=== PATIENT | male | born 1945 | race Caucasian/White ===

== ENCOUNTER 2016-11-22 10:03 | Inpatient (IN) | payer OTHER, MEDICARE ==
[~2016-11-22] VITALS: Ht 177.8 cm; Wt 138.5 kg
[2016-12-02] MEDS ORDERED: FENO160T PO (09:34)
[2016-12-02] MEDS ORDERED: LEVO200T4 PO (09:34)
[2016-12-02] MEDS ORDERED: ATOR10TA15 PO (09:34)
[2016-12-02] MEDS ORDERED: HYDR-3580 PO (09:34)
[2016-12-02] MEDS ORDERED: ENAL10TA PO (09:34)
--- NOTE | 2016-12-02 13:59 | MH ---
cc: CARINE DALTON M.D. DATE OF ADMISSION: 12/03/2016 ADMISSION DIAGNOSIS Malfunctioning right hip replacement arthroplasty. HISTORY OF PRESENT ILLNESS This patient is a 71-year-old male who in 2003 came to an anterolateral exposure of the right hip for hip resurfacing arthroplasty performed elsewhere. The patient did well until the last year when he was having progressive pain in the region of his right hip. Investigative studies shows evidence of elevated cobalt and chromium levels. This was concerning for malfunctioning right [id number] surface replacement arthroplasty. He presents now for revision arthroplasty. PAST MEDICAL HISTORY, SOCIAL HISTORY, FAMILY HISTORY, REVIEW OF SYSTEMS: See attached notes. PHYSICAL EXAMINATION GENERAL: A 71-year-old male in moderate distress with his right hip. HEENT: Normocephalic, atraumatic. Pupils equal, round, reactive to light and accommodation. Extraocular movements intact. NECK: Supple. CHEST: Clear. HEART: Regular rate and rhythm. ABDOMEN: Soft, nontender. Normoactive bowel sounds. MUSCULOSKELETAL: The patient has a right hip well-healed lateral incision, pain with range of motion especially internal and external rotation. Mild weakness is seen. Neurologic and vascular examination is within normal limits. IMPRESSION Malfunctioning right [id number] resurfacing hip arthroplasty. PLAN Revision right total hip replacement arthroplasty CONSENT There are risks with surgery including infection, bleeding, loss of motion, continued pain, need for further surgery, neurologic and vascular injury. The patient understands these issues and wishes to press on with surgery as outlined above. MD SALINA Fontaine/VASILIY /1:21 PM /1:50 PM
[2016-12-03] MEDS ORDERED: VANCOMYCIN 1000 MG/NS 250 ML (for <70 kg) IV SCH ×2 (10:15)
[2016-12-03] MEDS ORDERED: POVIDONE IODINE 7.5% SCRUB 118 ML BOTTLE TOPICAL SCH (10:15)
[2016-12-03] MEDS ORDERED: TRANEXAMIC ACID INJ 1,200 MG in SODIUM CHLORIDE 0.9% INJ 100 ML IV SCH (10:15)
[2016-12-03] MEDS ORDERED: LACTATED RINGER'S 1000 ML IV PRN (10:15)
[2016-12-03] MEDS ORDERED: CHLORHEXIDINE GLUCONATE 2 % 1 PACK (2 CLOTHS) TOPICAL PRN (10:15)
[2016-12-03] MEDS ORDERED: ceFAZolin 2 GM PREMIX 50 ML IV SCH (10:15)
[2016-12-03] MEDS ORDERED: EXPAREL PERI-ARTICULAR INJECTION (TOTAL VOL. 60 ML) P-ARTICULR SCH ×2 (10:15)
[2016-12-03] MEDS ORDERED: SODIUM CHLORID 0.9% 500 ML IV PRN (10:15)
[2016-12-03] MEDS ORDERED: METOPROLOL TARTRATE 25 MG TAB PO PRN (10:15)
[2016-12-03] MEDS ORDERED: INSULIN HUMAN REGULAR 1,000 UNITS/10 ML VIAL SQ PRN (10:15)
[2016-12-03] MEDS ORDERED: POVIDONE IODINE 5% (ANTISEPSIS KIT) 4 APPLICATIONS EACH NARE PRN (10:15)
[2016-12-03 10:25] VITALS: BP 115/72; PULSE 86; RESP 18; TEMP 97.8; O2SAT 96
[2016-12-03] MEDS ORDERED: FAMOTIDINE 20 MG/2 ML VIAL ONE (13:20)
[2016-12-03] MEDS ORDERED: fentaNYL CITRATE 250 MCG/5 ML AMP ONE ×2 (13:20→18:09)
[2016-12-03] MEDS ORDERED: MIDAZOLAM HCL 2 MG/2 ML VIAL ONE (13:20)
[2016-12-03] MEDS ORDERED: ACETAMINOPHEN 1000 MG/100 ML VIAL IV ONE (13:20)
[2016-12-03] MEDS ORDERED: DEXAMETHASONE SOD PHOS 4 MG/ML VIAL ONE (13:20)
[2016-12-03] MEDS ORDERED: HEPARIN SODIUM - SQ 10,000 UNITS/ML VIAL ONE (13:35)
[2016-12-03] MEDS ORDERED: ceFAZolin INJ 1,000 MG VIAL ONE (13:35)
[2016-12-03] MEDS ORDERED: GENTAMICIN SULFATE 80 MG/2 ML VIAL ONE (13:35)
[2016-12-03] MEDS ORDERED: THROMBIN (TOPICAL) 5,000 UNIT VIAL ONE (13:38)
[2016-12-03] MEDS ORDERED: GELATIN 12 MM/7 MM FOAM ONE (13:38)
[2016-12-03] MEDS ORDERED: HYDR-3366 PO (17:14)
[2016-12-03] MEDS ORDERED: XARE10TA PO (17:14)
[2016-12-03] MEDS ORDERED: TEMAZEPAM 15 MG CAP PO PRN (17:15)
[2016-12-03] MEDS ORDERED: ONDANSETRON HCL 4 MG/2 ML VIAL IVP PRN (17:15)
[2016-12-03] MEDS ORDERED: ALUMINUM/MAGNESIUM/SIMETH 30 ML CUP PO PRN (17:15)
[2016-12-03] MEDS ORDERED: SODIUM CHLORIDE 0.9% FLUSH 10 ML FLUSH IV FLUSH PRN (17:15)
[2016-12-03] MEDS ORDERED: NALOXONE HCL 0.4 MG/ML AMP IV PRN (17:15)
[2016-12-03] MEDS ORDERED: MISCELLANEOUS NURSING INFORMATION XX PRN (17:15)
[2016-12-03] MEDS ORDERED: MISCELLANEOUS PHARMACY INFORMATION XX ONE (17:15)
[2016-12-03] MEDS ORDERED: MORPHINE SULFATE 8 MG/ML INJ IM PRN (17:15)
[2016-12-03] MEDS ORDERED: Post-op Orders (for Pharmacy) MISC XX ONE (17:51)
[2016-12-03] MEDS ORDERED: DO NOT ADM ANY ANTICOAGULANT DRUGS PRN (17:56)
[2016-12-03] MEDS: MORPHINE SULFATE 30 MG/30 ML PCA IV SCH ×2 (18:22→22:46)
[2016-12-03] MEDS: LACTATED RINGER'S 1000 ML INJ 1,000 ML IV SCH ×2 (18:23→20:43)
--- NOTE | 2016-12-03 19:06 | RADRPT ---
EXAM DATE/TIME: 12/03/2016 18:13 [place] COMPARISON: No previous studies available for comparison. INDICATIONS : Post right hip surgery. MEDICAL HISTORY : None. SURGICAL HISTORY : None. ENCOUNTER: Initial ACUITY: 1 day PAIN SCORE: 7/10 LOCATION: Right Hip. FINDINGS: Patient is postop right total hip replacement. Air in soft tissues. Normal alignment. CONCLUSION: 1. Postoperative right hip replacement. Brant Jaimes MD on December 03, 2016 at 19:04 Board Certified Radiologist. This report was verified electronically.
[2016-12-03 20:00] VITALS: BP 113/69; PULSE 98; RESP 22; TEMP 96.3; O2SAT 94
[2016-12-03] MEDS: SODIUM CHLORIDE 0.9% FLUSH 10 ML FLUSH IV FLUSH SCH (20:43)
[2016-12-03] MEDS: SENNOSIDES 8.6 MG TAB PO SCH (20:43)
[2016-12-03] MEDS: MAGNESIUM HYDROXIDE SUSP 30 ML CUP PO SCH (20:43)
[2016-12-03] MEDS: PCA - TOTAL MG MORPHINE DELIVERED PER SHIFT SCH (22:00)
[2016-12-04] VITALS (7 sets, daily range): BP systolic 88–120; BP diastolic 63–75; PULSE 63–102; RESP 18–22; TEMP 97.1–99.5; O2SAT 92–95
[2016-12-04] MEDS: LEVOTHYROXINE SODIUM 200 MCG TAB PO SCH (05:21)
[2016-12-04] MEDS: MORPHINE SULFATE 30 MG/30 ML PCA IV SCH ×2 (05:22→10:51)
[2016-12-04] MEDS: PCA - TOTAL MG MORPHINE DELIVERED PER SHIFT SCH (05:22)
[2016-12-04 08:18] LABS: HEMATOCRIT 38.9 % (39.0-51.0); REVIEW FLAG FINAL
[2016-12-04] MEDS: ENALAPRIL MALEATE 10 MG TAB PO SCH (08:53)
[2016-12-04] MEDS: ACETAMINOPHEN/HYDROcodone 325 MG/10 MG TAB PO PRN ×3 (08:54→22:04)
[2016-12-04] MEDS: SODIUM CHLORIDE 0.9% FLUSH 10 ML FLUSH IV FLUSH SCH ×2 (08:54→20:07)
[2016-12-04] MEDS: FENOFIBRATE 145 MG TAB PO SCH (08:54)
[2016-12-04] MEDS: MAGNESIUM HYDROXIDE SUSP 30 ML CUP PO SCH ×2 (08:54→20:07)
[2016-12-04] MEDS ORDERED: WALKER WHEELS/F1 MIS (11:02)
[2016-12-04] MEDS ORDERED: COMMODE 3-IN-11 MIS (11:03)
--- NOTE | 2016-12-04 11:06 | HHI.FF ---
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 WBAT RLE. Posterior MARKUS protocol. Gait training, walker. Abd pillow in bed for 2-3 weeks. Nursing RN Days per Week: 2 x Week(s): 1 Dressing Changes: Do not change dressing Additional Instructions Vitals assessment. Hold dressing changes unless saturated or erythema. I have seen patient Milad Costa Jr Amairani on 12/04/16. My clinical findings support the need for the requested home health care services because: Limited ability to care for self High risk of falls I certify that my clinical findings support that this patient is homebound because: Post-op weakness Unsteady gait/balance Fina Rivera Dec 04, 2016 11:06
--- NOTE | 2016-12-04 13:23 | PD.ORT.PN ---
Subjective Subjective Remarks Moderate right thigh pain but states 'he is happy he can move his leg better'. Was able to get some sleep last night. He thinks he did 'pretty well' with PT today. No new radiating leg pain. No CP or SOB. Questions about surgery. Objective Vitals Vital Signs Date Time Temp Pulse Resp B/P Pulse Ox O2 Delivery O2 Flow Rate FiO2 12/04/16 12:00 98.0 95 18 88/63 93 12/04/16 10:56 17 12/04/16 10:51 16 12/04/16 09:54 16 12/04/16 08:00 98.5 96 18 118/75 93 12/04/16 07:33 93 21 12/04/16 04:00 99.0 93 22 103/68 93 12/04/16 00:31 21 12/04/16 00:00 98.8 63 22 107/72 95 12/03/16 20:00 96.3 98 22 113/69 94 12/03/16 18:45 98.4 92 18 96/64 93 Nasal Cannula 2 12/03/16 18:31 Nasal Cannula 2.00 12/03/16 18:30 93 17 95/58 94 Nasal Cannula 2 12/03/16 18:22 15 12/03/16 18:15 97 16 92/59 94 Nasal Cannula 2 12/03/16 18:00 103 19 99/59 93 Nasal Cannula 2 12/03/16 17:56 98.5 104 16 110/61 93 Simple Mask 6 I/O 12/03/16 12/03/16 12/03/16 12/04/16 12/04/16 12/04/16 07:00 15:00 23:00 07:00 15:00 23:00 Intake Total 5541 ml 1317 ml Output Total 2350 ml 425 ml Balance 3191 ml 892 ml Intake Oral 1200 ml 720 ml IV Total 341 ml 597 ml Other 4000 ml Output Urine Total 2050 ml 425 ml Estimated Blood Loss 300 ml Result Diagram: 12/04/16 0708 Imaging Last 24 hours Impressions Hip X-Ray 12/03/16 1710 Signed Impressions: Service Date/Time: Saturday, December 03, 2016 18:13 - CONCLUSION: 1. Postoperative right hip replacement. 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 PT - WBAT RLE. Posterior hip precautions. Xarelto 10mg qd for 25 days. Hold dressing changes unless saturated. No repeat labs necessary at this time. D/C planning, likely Home w [facility] tomorrow. DME written. Fina Rivera Dec 04, 2016 13:23
[2016-12-04] MEDS: RIVAROXABAN 10 MG TAB PO SCH (16:14)
[2016-12-04] MEDS: LACTATED RINGER'S 1000 ML INJ 1,000 ML IV SCH (19:00)
[2016-12-04] MEDS: ATORVASTATIN 10 MG TAB PO SCH (20:07)
[2016-12-04] MEDS: SENNOSIDES 8.6 MG TAB PO SCH (20:07)
[2016-12-05] VITALS: BP 107/59; PULSE 94; RESP 18; TEMP 98.1; O2SAT 95
[2016-12-05] MEDS: ACETAMINOPHEN/HYDROcodone 325 MG/10 MG TAB PO PRN ×4 (03:32→23:04)
[2016-12-05] MEDS: LEVOTHYROXINE SODIUM 200 MCG TAB PO SCH (05:39)
[2016-12-05] MEDS: LACTATED RINGER'S 1000 ML INJ 1,000 ML IV SCH ×2 (07:30→20:00)
[2016-12-05 08:00] VITALS: BP 104/75; PULSE 90; RESP 17; TEMP 97.8; O2SAT 90
--- NOTE | 2016-12-05 08:43 | HHI.DS ---
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 increased pain last year despite having a lumbar radiculopathy and previous lumbar surgery. CBC/BMP: 12/04/16 0708 Significant Findings Laboratory Tests Test 12/04/16 07:08 Hematocrit 38.9 % (39.0-51.0) PE at Discharge Sitting up in chair No acute distress VSS RLE Posterior hip dressing c/d/i, no significant drainage, mild swelling, no erythema +motor at, +sens, +nvi neg homans, thigh and calf supple Hospital Course Surgical treatment was performed on the day of admission without complication. He recovered well in PACU and was transferred to the orthopaedic floor. Pain was controlled with IV and oral medications. DVT prophylaxis was initiated pod# 1 with xarelto. He was compliant with physical therapy and all posterior hip precautions. After --2-- days he was found to be stable and discharged home with home health care with instruction to continue therapy and posterior hip precautions. He was also instructed to continue his xarelto for 25 days and to continue a high fiber diet for 3-5 days. Pt Condition on Discharge: Stable Discharge Disposition: Disch w/ Home Health Serv Discharge Instructions Diet Instructions: As Tolerated, No Restrictions, High Fiber Diet Activities You Can Perform: Weight Bearing as Blaze Activities to Avoid: Strenuous Activity Additional Activity Instruc.: Posterior hip precautions New Medications: Commode 3-in-1 (Commode 3-in-1) 1 Mis Mis 1 EA .ROUTE DIRECTED #1 Ref 0 EA Hydrocodone-Acetaminophen (Ashley) 10-325 Mg Tab 1 TAB PO Q4H PRN PAIN #50 Ref 0 TAB Rivaroxaban (Xarelto) 10 Mg Tab 10 MG PO DAILY PRN Prevent Blood Clot #25 Ref 0 TAB Walker with Front Wheels (Walker with Front Wheels) 1 Mis Mis 1 EA .ROUTE DIRECTED #1 Ref 0 EA Continued Medications: Atorvastatin (Atorvastatin) 10 Mg Tab 10 MG PO HS Cholesterol Management #30 Ref 0 TAB Enalapril (Enalapril) 10 Mg Tab 10 MG PO DAILY #30 Ref 0 TAB Fenofibrate (Fenofibrate) 160 Mg Tab 160 MG PO DAILY #30 Ref 0 TAB Hydrocodone-Acetaminophen (Hydrocodone-Acetaminophen) 7.5-325 mg Tab 1 TAB PO Q4H PRN PAIN Ref 0 TAB Levothyroxine (Levothyroxine) 200 Mcg Tab 200 MCG PO DAILY Thyroid #30 Ref 0 TAB Fina Rivrea Dec 05, 2016 08:43
--- NOTE | 2016-12-05 08:43 | HHI.DCPOC ---
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 Avoid second hand smoke Call the 24-hour hour crisis hotline for domestic abuse at Fina Rivera Dec 05, 2016 08:43
[2016-12-05] MEDS: FENOFIBRATE 145 MG TAB PO SCH (08:52)
[2016-12-05] MEDS: ENALAPRIL MALEATE 10 MG TAB PO SCH (08:52)
[2016-12-05] MEDS: MAGNESIUM HYDROXIDE SUSP 30 ML CUP PO SCH ×2 (08:53→23:03)
[2016-12-05] MEDS: SODIUM CHLORIDE 0.9% FLUSH 10 ML FLUSH IV FLUSH SCH ×2 (08:54→23:07)
[2016-12-05 11:27] VITALS: O2SAT 94
[2016-12-05 12:00] VITALS: BP 122/74; PULSE 92; RESP 17; TEMP 97; O2SAT 92
[2016-12-05 16:00] VITALS: BP 125/80; PULSE 100; RESP 17; TEMP 99.2; O2SAT 93
[2016-12-05] MEDS: RIVAROXABAN 10 MG TAB PO SCH (16:54)
[2016-12-05 20:00] VITALS: BP 126/72; PULSE 100; RESP 20; TEMP 98.2; O2SAT 94
--- NOTE | 2016-12-05 22:12 | MP ---
cc: CARINE CABAN DATE OF SURGERY 12/03/16 PREOPERATIVE DIAGNOSIS 1. Malfunctioning right hip resurfacing arthroplasty. 2. Possible loosened hip replacement arthroplasty POSTOPERATIVE DIAGNOSIS 1. Cystic formation right femoral head with loosened femoral head resurfacing arthroplasty. 2. Loosened right acetabular component. PROCEDURE Revision right total hip replacement arthroplasty SURGEON Jordyn Caban MD [employer] TUTOR MINOO Segundo ANESTHESIA General. ESTIMATED BLOOD LOSS 400 mL INDICATION This patient is a 71-year-old white male who in 2003 came to right hip resurfacing arthroplasty by another surgeon in the [facility]. The patient did well, but over the last year and a half he has been having progressive pain in the region of his right hip. Investigative studies are consistent with probable loosening of the components but no evidence of infection. He presents for revision arthroplasty. NOTE MINOO Jaramillo, was present during the entire surgical procedure as my first officer and flight instructor. In my medical opinion, her skill and care was necessary for the proper management of this patient. COMPONENTS [employer] cup: [place] 62 mm, 100 series, gription surface. Liner: AltrX 36 mm inside diameter, neutral Stem: [place] size nine, high offset, 12/14 taper, hydroxyapatite coated Head: Metal articules 36 mm, +5 neck length. PROCEDURE IN DETAIL The patient was brought to the operating room, anesthetized in supine position. He was r to right side up position and held with a Biomet hip position. The right hip and leg was scrubbed with alcohol followed by Hibiclens followed by Chloraprep and draped sterilely. The patient had a previous anterolateral incision. A separate posterolateral incision was made. The iliotibial band was opened in line with the incision. The Charnley retractor was positioned. Care was taken to avoid any injury to the sciatic nerve. The posterior capsule and external rotators were taken down together in a sleeve. There was no metalosis. There is no metal or debris that was seen. Mild synovitis was noted. This had a benign appearance. A total capsulectomy was performed. The hip was dislocated posteriorly. 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 It was clear that this was loose. A saw was used to cut the neck at the right location. Multiple drill holes were placed along the anterior cortex. This was then osteotomized and the head and neck removed. A total capsulectomy was performed further. The cup was inspected. We used a soft impactor and we were able to find that the cup was loose removing this completely. The circumferential osteophytes and soft tissue were debrided. The cup was then started at 54 mm and slowly reamed up to 61 mm. A 61 mm trial had a good fit. We then impacted a 62 mm fully porous coated, 180 degree shell using a pinnacle 100 series 60 mm shell. This was placed at approximately 40-45 degrees of abduction and 20-25 degrees of forward flexion. The fit overall was good. Alignment was satisfactory. No additional fixation was necessary. A single hole eliminator positioned followed by a 36 mm neutral AltrX liner. Attention was directed to the canal. This was opened with a box osteotome followed by taper pin reamer and then progressive reaming up to an 8 and finally to a size nine stem. This is broached, measured carefully against the greater trochanter checking carefully for offset and leg length. We trialed this several times and felt that a +5 neck length fit best. The wound was irrigated copiously. The final stem was impacted in approximately 15 degrees of anteversion. The hip was reduced with a +5 36 head. At 90 degrees of flexion it was stable to 65 degrees of internal rotation. With full external rotation and extension it could not be subluxed anteriorly. Leg length appeared to be at the preoperative leg length. The wound was irrigated copiously. Hemostasis was controlled. The posterior capsule and external rotators were repaired through bone with interrupted #2 Tycron sutures. The piriformis with the same. The iliotibial band with interrupted #1 Vicryl suture. Subcutaneous tissue with 2-0 Vicryl suture and skin with running intradermal 3-0 Vicryl followed by Benzoin and Steri-Strips. Sponge count, needle counts and instrument counts were all correct. The patient tolerated the procedure well and taken to recovery room in satisfactory something. MD SALINA Fontaine/ /7:09 PM /9:37 PM MTDAdal
[2016-12-05] MEDS: SENNOSIDES 8.6 MG TAB PO SCH (23:03)
[2016-12-05] MEDS: ATORVASTATIN 10 MG TAB PO SCH (23:04)
[2016-12-06] VITALS: BP 112/73; PULSE 97; RESP 20; TEMP 98.3; O2SAT 96
[2016-12-06] MEDS: LEVOTHYROXINE SODIUM 200 MCG TAB PO SCH (05:12)
[2016-12-06] MEDS: ACETAMINOPHEN/HYDROcodone 325 MG/10 MG TAB PO PRN ×2 (05:13→11:55)
--- NOTE | 2016-12-06 07:59 | PD.ORT.PN ---
Subjective Subjective Remarks No complaints. Discharge held yesterday due to [place]. Once to go home today Objective Vitals Vital Signs Date Time Temp Pulse Resp B/P Pulse Ox O2 Delivery O2 Flow Rate FiO2 12/06/16 05:59 18 12/06/16 00:12 18 12/06/16 00:00 98.3 97 20 112/73 96 12/05/16 21:00 Room Air 12/05/16 20:00 98.2 100 20 126/72 94 12/05/16 16:00 99.2 100 17 125/80 93 12/05/16 12:00 97.0 92 17 122/74 92 12/05/16 11:27 94 Nasal Cannula 2.00 12/05/16 08:00 97.8 90 17 104/75 90 I/O 12/05/16 12/05/16 12/05/16 12/06/16 12/06/16 12/06/16 07:00 15:00 23:00 07:00 15:00 23:00 Intake Total 480 ml 600 ml 480 ml 240 ml Output Total 1400 ml 2700 ml 1500 ml 1500 ml Balance -920 ml -2100 ml -1020 ml -1260 ml Intake Oral 480 ml 600 ml 480 ml 240 ml Output Urine Total 1400 ml 2700 ml 1500 ml 1500 ml # Bowel Movements 0 0 0 0 Result Diagram: 12/04/16 0708 Imaging Last 24 hours Impressions Hip X-Ray 12/03/16 1710 Signed Impressions: Service Date/Time: Saturday, December 03, 2016 18:13 - CONCLUSION: 1. Postoperative right hip replacement. 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
[2016-12-06 08:00] VITALS: BP 120/80; PULSE 89; RESP 18; TEMP 98.1; O2SAT 93
[2016-12-06] MEDS: LACTATED RINGER'S 1000 ML INJ 1,000 ML IV SCH (08:30)
[2016-12-06] MEDS: MAGNESIUM HYDROXIDE SUSP 30 ML CUP PO SCH (10:42)
[2016-12-06] MEDS: FENOFIBRATE 145 MG TAB PO SCH (10:42)
[2016-12-06] MEDS: ENALAPRIL MALEATE 10 MG TAB PO SCH (10:43)
[2016-12-06] MEDS: SODIUM CHLORIDE 0.9% FLUSH 10 ML FLUSH IV FLUSH SCH (10:43)
[2016-12-06 12:00] VITALS: BP 115/74; PULSE 95; RESP 18; TEMP 98.1; O2SAT 96
== END 2016-12-06 17:02 | disposition home health service (06) | DRG 468 ==
LOC: HSDI 12-03 09:36 → N06A 12-03 18:58
PROVIDERS: ADMIT Orthopaedic Surgery Orthopaedic Surgery of the Spine; ATTEND Orthopaedic Surgery Orthopaedic Surgery of the Spine
PROC: 0SP90JZ Removal of Synthetic Substitute from Right Hip Joint, Open Approach (ICD-10-PCS; 2016-12-03)
PROC: 0SP909Z Removal of Liner from Right Hip Joint, Open Approach (ICD-10-PCS; 2016-12-03)
PROC: 0SR901A Replacement of Right Hip Joint with Metal Synthetic Substitute, Uncemented, Open Approach (ICD-10-PCS; principal; 2016-12-03 14:11)
DX: T84.030A Mechanical loosening of internal right hip prosthetic joint, initial encounter (principal); Y83.8 Other surgical procedures as the cause of abnormal reaction of the patient, or of later complication, without mention of misadventure at the time of the procedure
CPT/HCPCS: 73502; 85014; 85018; 86850; 86900; 86901; 86920; 94150; 94620; C9290; J0131; J0690; J1100; J1580; J1644; J2250; J2270; J3010; J3370; J7050; J7120